=== PATIENT | male | born 1970 | race Caucasian/White ===

== ENCOUNTER 2024-03-07 12:02 | Day surgery (SDC) | payer OTHER, SELFPAY ==
--- NOTE | 2024-03-07 | PATH_ITS ---
[facility] Accession Number: [id number] No. of containers..02 Tissue . 01 Material submitted: . PART A: rectum - RECTAL POLYP PART B: colon - DESCENDING COLON POLYP . 01 Diagnosis: Part A: RECTAL POLYP: Tubular adenoma. Hyperplastic polyp. . Part B: DESCENDING COLON POLYP: Tubular adenoma. STO 03/14/2024 1422 Local . 01 Electronically signed: . Flako Aaron MD, Pathologist NPI- [id number] . 01 Gross description: . Part A: RECTAL POLYP: Received in formalin are 2 fragment(s) of may, soft tissue measuring 0.2 x 0.2 x 0.2 cm to 0.3 x 0.3 x 0.2 cm submitted entirely in 1 cassette(s) . Part B: DESCENDING COLON POLYP: Received in formalin are 2 fragment(s) of may, soft tissue measuring 0.2 x 0.2 x 0.1 cm to 0.3 x 0.2 x 0.2 cm submitted entirely in 1 cassette(s) /OVIIDO 03/14/2024 142 Local . 01 Pathologist provided ICD-10: D12.4, D12.8 . 01 CPT . 728123, 912326 Specimen Comment: A courtesy copy of this report has been sent to [phone] Performed at: 01 [facility] [address] [place] [address], [place], [place] [id number] MD Flako Aaron MD Phone: [phone]
[2024-03-07 12:32] VITALS: BMI 23.0
[2024-03-07 12:36] VITALS: BP 152/82; PULSE 76; RESP 16; TEMP 36.1; O2SAT 99
[2024-03-07] MEDS: LACTATED RINGERS 1,000 ML 42 ML IV (12:45)
--- NOTE | 2024-03-07 12:48 | P.HP_ITS ---
History of Present Illness History of Present Illness Date Patient Seen: 03/07/24 Chief complaint: Colonoscopy Narrative: 54-year-old man here for screening colonoscopy 1st time. No no family history of intestinal malignancy. No abdominal concerns today. [facility] Social History household members: spouse Smoking Status: Never smoker alcohol intake: current Meds Home Medications and Allergies Home Medications Medication Instructions Recorded Confirmed Type No Known Home Medications 03/07/24 03/07/24 History Allergies Allergy/AdvReac Type Severity Reaction Status Date / Time No Known Drug Allergies Allergy Verified 03/07/24 12:30 Exam Vital Signs (past 8 hours): - 03/07/24 12:36 Temperature 97.0 F L Pulse Rate 76 Respiratory Rate 16 Blood Pressure 152/82 H Pulse Oximetry 99 Oxygen Delivery Method Room Air Oxygen Delivery Method Room Air Narrative Exam Narrative: General adult man alert oriented no acute distress Chest nonlabored respiration Extremities warm well perfused Assessment & Plan Assessment & Plan narrative: The patient requires colorectal screening and colonoscopy is recommended. Technical details were discussed. Risks, benefits, alternatives explained. Risks including but not limited to myocardial infarction, aspiration, bleeding, pain, missed lesion, incomplete examination, need for further radiographic studies, intestinal injury, and need for major abdominal surgery were discussed. All questions were answered to their satisfaction, and they are in agreement with this plan.
[2024-03-07 13:40] VITALS: BP 109/70; PULSE 58; RESP 16; TEMP 36.2; O2SAT 98
[2024-03-07 13:45] VITALS: BP 109/70; PULSE 65; RESP 16; TEMP 36.2; O2SAT 98
--- NOTE | 2024-03-07 13:49 | P.OP.COLON_ITS ---
Operative Date/Time/Diagnoses Date of procedure: 03/07/24 Time of procedure: 13:49 Pre-op diagnosis: Colorectal screening Procedure & Clinicians Study performed: Screening colonoscopy Same procedure as scheduled: Yes Indications: Colorectal screening Surgeon: Hilton Ying Procedure Notes Procedure in detail: The history and physical was performed/updated and the patient is ASA class is 1. The procedure was discussed in detail with the patient. Potential risks com plications including infection, bleeding, missed diagnosis, perforation, need for surgery, and were explained. Their questions were answered and informed consent was obtained. Patient was brought to the procedure room and placed standard monitoring equipment. The patient's vital signs were monitored continuously throughout the entire procedure. Prior to starting time-out was performed. The patient was placed in the left lateral recumbent position. Procedural sedation was administered by anesthesia. Examination began with a thorough inspection of the perianal area there was no evidence of fissures, fistulae, external hemorrhoids or cutaneous malignancy. The colonoscopy scope was then placed into the anal canal and was advanced to the cecum, which was identified by the ileocecal valve, the appendiceal orifice and the confluence of the taenia. The scope was then slowly withdrawn examining colon thoroughly in all directions, irrigating it of any residual stool. The scope was retroflexed within the rectum The patient tolerated the procedure well. They will be discharged once criteria are met. The prep was of good/excellent quality. The withdrawl time was 9 minutes. FINDINGS * Rectum polyp 3 mm x 2 removed with biopsy forceps * Descending colon polyp 3 mm removed with biopsy forceps. Specimen(s): other (Rectal polyps x2, descending colon polyp) Impression: Colonic polyps x3 Post-procedure Plan for aftercare: Follow-up is dependent on pathology findings Disposition: same day surgery
[2024-03-07 13:50] VITALS: BP 126/78; PULSE 64; RESP 16; O2SAT 98
[2024-03-07 13:53] VITALS: BP 113/72; PULSE 70; RESP 16; TEMP 36.2; O2SAT 98
[2024-03-07 14:03] VITALS: BP 124/85; PULSE 76; RESP 16; TEMP 36.2; O2SAT 98
== END 2024-03-07 14:13 | disposition home or self-care (01) ==
PROVIDERS: Referring Provider Surgery; Visit Provider Surgery
PROC: 0DJD8ZZ Inspection of Lower Intestinal Tract, Via Natural or Artificial Opening Endoscopic (ICD-10-PCS; CPT 45378; principal; 2024-03-07 13:00)
DX: Z12.11 Encounter for screening for malignant neoplasm of colon (principal); D12.4 Benign neoplasm of descending colon; D12.8 Benign neoplasm of rectum
CPT/HCPCS: 45380; J2704

== ENCOUNTER → 2025-03-19 09:14 | Outpatient (CLI) | payer OTHER, SELFPAY ==
--- NOTE | 2025-03-19 09:15 | DI.ECHO.S_ITS ---
[place] +---------+ Hospital : : [address] : : [place] : : [id number] : : Phone: [phone] Echocardiogram Report + + :Name: FLIP LIND Study Date: 03/19/2025 Height: 72 in : :[facility] ReadingLocation: Weight: 175 lb : : Gender: Male BSA: 2.0 m2 : :: 1970 Age: 55 yrs BP: 127/86 mmHg: :Reason For Study: LEFT CHEST PAIN, FAMILY HISTORY OF CORONARY : :ARTERY DISASE : :Ordering Physician: MURRAY, : :JHONATHAN Frost Performed By: Caterina Forte : :Referring: JHONATHAN GAO : + + Interpretation Summary 1. The left ventricular contractility is borderline. Estimated ejection fraction is approximately 50 to 55% with no segmental wall motion abnormalities. No LVH. Normal diastolic function. 2. The right ventricular contractility is normal. 3. All cardiac chambers are of normal size. 4. Mild mitral regurgitation. 5. No obvious intracardiac shunts. 6. No obvious intra neck masses nor thrombi. 7. No hemodynamically significant pericardial effusion. 8. Low right-sided filling pressures. Conclusion: Low normal left ventricular systolic function with no severe valvular abnormalities. Procedure: A two-dimensional transthoracic echocardiogram with color flow and Doppler was performed. The study quality was technically adequate. There is no prior echocardiogram noted for this patient. The patient was in sinus bradycardia with heart rates between 50-60 bpm during the exam. Left Ventricle: The left ventricle is normal in size and wall thickness. The ejection fraction is estimated to be 50-55%. Right Ventricle: The right ventricle is normal in size and function. Atria: The left atrial size is normal. Right atrial size is normal. There is no Doppler evidence for an interatrial shunt. Mitral Valve: The mitral valve leaflets appear mildly thickened, but open well. There is mild mitral regurgitation. Aortic Valve: The aortic valve is trileaflet. The aortic valve opens well. There is no aortic valve stenosis. No aortic regurgitation is present. Tricuspid Valve: The tricuspid valve leaflets are thin and pliable. There is trace tricuspid regurgitation. Pulmonary artery pressures cannot be estimated because of the lack of a measurable TR jet velocity. Pulmonic Valve: The pulmonic valve leaflets are thin and pliable; valve motion is normal. There is no pulmonic valvular regurgitation. Great Vessels: The aortic root is normal size. The dimensions of the ascending aorta are normal. The IVC is of normal diameter and collapses greater than 50% with a sniff. This suggests a low right atrial pressure of 3 mm Hg. Pericardium/ Pleura There is no pericardial effusion. There is no pleural effusion. MMode/2D Measurements & Calculations LVIDd: 5.0 cm LVOT diam: 2.0 cm LVIDs: 3.6 cm Ao root diam: 2.9 cm FS: 28.5 % asc Aorta Diam: 3.6 cm EPSS: 0.41 cm Ao Arch Diam (Prox Trans): 3.0 cm IVSd: 0.72 cm LVPWd: 0.64 cm LV jovel. diameter/BSA (cm/m^2): 2.5 LV sys. diameter/BSA (cm/m^2): 1.8 LA A2 area: 18.6 cm2 RA long axis: 5.3 cm LA A4 area: 17.6 cm2 RA area: 19.0 cm2 LA length (vol): 5.2 cm RA vol: 58.1 ml LA vol: 53.8 ml RA : 28.8 ml/m2 LA vol index: 26.7 ml/m2 IVC diam: 1.6 cm RVD1 (basal): 3.2 cm RVD2 (mid): 2.7 cm TAPSE: 2.4 cm Doppler Measurements & Calculations Ao V2 max: 143.4 cm/sec LVOT Max Mauricio: 96.1 cm/sec Ao V2 mean: 93.9 cm/sec LV V1 max P.7 mmHg Ao max P.2 mmHg LV V1 VTI: 19.5 cm Ao mean P.0 mmHg PAULO(I,D): 2.2 cm2 Ao V2 VTI: 27.4 cm PAULO(V,D): 2.1 cm2 sev ratio: 0.71 PAULO indexed to BSA (cm^2/m^2): 1.1 MV E max mauricio: 69.7 cm/sec PA V2 max: 100.1 cm/sec MV A max mauricio: 65.6 cm/sec PA V2 mean: 68.4 cm/sec MV E/A: 1.1 PA mean P.2 mmHg Med Peak E' Mauricio: 9.9 cm/sec PA pr(Accel): 9.6 mmHg E/E' med: 7.1 Lat Peak E' Mauricio: 11.5 cm/sec E/E' lat: 6.0 E/e' average: 6.6 MV dec time: 0.19 sec SVLVOT): 60.0 ml Reading Physician:ELIEL
== END ==
LOC: ECHO 09:15
PROVIDERS: Referring Provider Family Medicine; Visit Provider Family Medicine
DX: I34.0 Nonrheumatic mitral (valve) insufficiency (principal); E78.2 Mixed hyperlipidemia
CPT/HCPCS: 93306